=== PATIENT | female | born 1965 | race Caucasian/White ===

== ENCOUNTER 2017-02-02 16:43 | Emergency (ER) | payer OTHER ==
[~2017-02-02] VITALS: Ht 154.9 cm; Wt 68.0 kg
[~2017-02-02 16:43] MED LIST: ACET1TAB40 PO; ALPR0.25 PO; ATOR10TA65 PO; AZIT250T94 PO; CYCL-319 PO; IBUP-1542 PO; IBUP800T25 PO; LEVO137T3 PO; MED4DP PO; NAPR-688 PO; TRAM-40 PO
[2017-02-02 16:51] VITALS: Ht 154.9 cm; Wt 68.0 kg
--- NOTE | 2017-02-02 18:17 | RADRPT ---
PROCEDURE: CT Brain without. CLINICAL INDICATION: Facial numbness. TECHNIQUE: A CT of the brain was performed on multidetector high-resolution CT scanner utilizing a xial sections from the skull base through the vertex without contrast. The scan was reviewed in sof t tissue brain and high frequency resolution bone algorithm windows. Images were reviewed on a high -resolution PACS workstation. One or more the following does reduction techniques were utilized: Aut omated exposure control, adjustment of the mA/ or kV according to patient's size, or use of iterativ e reconstruction technique. The exam CTDI = 44.84 mGy and the DLP = 630.2 mGy-cm. COMPARISON: Brain CT 07/04/2013. FINDINGS: The ventricles and sulci are age-appropriate. There is no intracranial hemorrhage, mass effect or mi dline shift. No abnormal intra-axial or extra-axial fluid collections are seen. The carlson/white nick er differentiation is preserved. No acute skull abnormality is noted. The visualized paranasal sinus es are essentially clear. IMPRESSION: 1. No acute intracranial hemorrhage, transcortical infarction or mass effect. If clinical concern p ersists consider brain MRI. RPTAT: HH .Jered Mcclure MD, MD Date Time Electronically viewed and signed by .Jered Mcclure MD, MD on 02/02/2017 18:17 .N/
--- NOTE | 2017-02-02 19:12 | ERD ---
ER Documentation Chief Complaint Date/Time DATE: 02/02/17 TIME: 19:08 Chief Complaint LEFT SIDED FACIAL [id number], NO NEURO DEFICITS NOTED HPI This is a 51-year-old female with history of hypertension presenting to the emergency department complaining of left-sided facial and scalp numbness and tingling for the past 3 days. Patient denies any vision changes, headache, or other neuro deficits. Patient states that she did have a headache this morning she took ibuprofen and resolved. Patient states that this has happened to her in the past and she went to a physician who put her on atenolol and it went away. She rates as moderate in severity. ROS All systems reviewed and are negative except as per history of present illness. Medications Home Meds Active Scripts Naproxen* (Naproxen*) 500 Mg Tablet, 500 MG PO BID Y for PAIN, #30 TAB Prov:TARI GOODEN PA-C 10/25/15 Cyclobenzaprine Hcl* (Cyclobenzaprine Hcl*) 10 Mg Tablet, 10 MG PO TID Y for PAIN, #20 TAB Prov:TARI GOODEN PA-C 10/25/15 Tramadol Hcl* (Ultram*) 50 Mg Tablet, 50 MG PO Q6H Y for PAIN, #20 TAB Prov:TARI GOODEN PA-C 10/25/15 Methylprednisolone* (Medrol* DOSE PACK) 4 Mg/Dose-Pack Tab.ds.pk, 4 MG PO . DIRECTED, #1 PACKET Prov:TARI GOODEN PA-C 10/25/15 Azithromycin* (Zithromax*) 250 Mg Tablet, 250 MG PO .STEFFENCK DIRECTED, #6 TAB TAKE 500 MG (2 TABS) THE FIRST DAY THEN 250 MG (1 TAB) DAYS 2-5 Prov:MICHAEL YEE MD 06/13/15 Acetaminophen-Codeine* (Acetaminophen-Cod #3*) 300-30 Mg Tab, 1 TAB PO Q4H Y for PAIN, #14 TAB Prov:MICHAEL YEE MD 06/13/15 Ibuprofen* (Motrin*) 600 Mg Tab, 600 MG PO Q6, #20 TAB Prov:MICHAEL YEE MD 06/13/15 Reported Medications Alprazolam* (Xanax*) 0.25 Mg Tablet, 0.25 MG PO HS Y 07/05/13 Atorvastatin Calcium (Atorvastatin Calcium) 10 Mg Tab, 10 MG PO HS 07/05/13 Ibuprofen* (Ibuprofen*) 800 Mg Tablet, 800 MG PO TID Y 07/05/13 Levothyroxine Sodium* (Levothyroxine Sodium*) 137 Mcg Tablet, 137 MCG PO DAILY 07/03/13 Allergies Allergies: Coded Allergies: No Known Allergy (Verified , 06/13/15) PMhx/Soc History of Surgery: No Anesthesia Reaction: No Hx Neurological Disorder: No Hx Respiratory Disorders: No Hx Cardiac Disorders: Yes (high cholesterol) Hx Psychiatric Problems: No Hx Miscellaneous Medical Probl: Yes (anxiety disorder) Hx Alcohol Use: No Hx Substance Use: No Hx Tobacco Use: No Physical Exam Vitals Vital Signs Date Time Temp Pulse Resp B/P Pulse Ox O2 Delivery O2 Flow Rate FiO2 02/02/17 16:51 98.2 88 18 140/86 99 Physical Exam GENERAL: well-developed/well-nourished, in no apparent distress, non-toxic appearing HENT: NC/AT, bilateral tympanic membrane is normal with good cone of light, nares patent, oropharynx clear without exudates EYES: Conjunctiva normal, PERRLA, EOMI, no nystagmus noted NECK: Supple, no lymphadenopathy PULM: CTA bilaterally, no rales, rhonchi, or wheezing heard CV: Normal S1S2, RRR, good capillary refill GI: Soft, non-distended, normal bowel sounds, non-tender BACK: No midline tenderness, no masses, No CVAT EXT: No clubbing, cyanosis, or edema NEURO: Alert and orientated to person, place, and time. CN II-IIX intact. Gait and coordination were normal. Hand escrow agent strength were equal and within normal limits SKIN: Intact, normal turgor PSYCH: Normal mood and mentation, patient denied SI Procedures/MDM This is a 51-year-old female presenting to the emergency department complaining of left-sided facial and scalp numbness and tingling for the past 3 days, differentials include but not limited to multiple sclerosis, CVA, migraine, anxiety. On examination patient had a normal neurological exam, she had no focal weakness. She had full facial movements. A CT of the head was done and did not show any acute pathology. Patient is suitable for following up with a neurologist outpatient. Patient is hematuria stable for discharge for home. Discussed return to the ER for any worsening sinus symptoms. Patient understands and agrees to this plan Departure Diagnosis: Primary Impression: Facial numbness Condition: Fair Patient Instructions: Numbness, Paraesthesias Additional Instructions: Seguimiento con bray mdico regular para obtener isa remisin a un neurlogo Visite a bray mdico maana para un EXAMEN.Regrese a estas instalaciones si no se mejora zhao esperbamos o zhao le dijimos. Regrese a estas instalaciones si no se mejora zhao esperbamos o zhao le dijimos. BEN DOBBINS PA-C February 02, 2017 19:12
[2017-02-02 19:41] VITALS: BP 139/77; PULSE 70; RESP 16
== END 2017-02-02 19:42 | disposition home or self-care (01) ==
LOC: FTE 16:43
DX: R20.0 Anesthesia of skin (principal); I10 Essential (primary) hypertension
CPT/HCPCS: 70450

== ENCOUNTER 2017-03-14 12:13 | Emergency (ER) | payer OTHER ==
[~2017-03-14] VITALS: Ht 157.5 cm; Wt 70.0 kg
[2017-03-14 12:16] VITALS: Ht 157.5 cm; Wt 70.0 kg
[2017-03-14] MEDS ORDERED: traMADol 50 MG TAB PO ONE (14:00)
[2017-03-14] MEDS ORDERED: IBUP-1542 PO (15:08)
--- NOTE | 2017-03-14 15:09 | RADRPT ---
PROCEDURE: XR, right shoulder CLINICAL INDICATION: Pain. TECHNIQUE: 2 views of the shoulder were obtained. COMPARISON: None available FINDINGS: The glenohumeral joint is normal. The acromioclavicular joint is also normal. No acute fracture, d islocation or destructive lesion. The visualized ribs and clavicle are unremarkable. The surroundi ng soft tissues are also unremarkable. IMPRESSION: 1. Unremarkable shoulder x-ray series. RPTAT: GG .Xander Dia MD, Date Time Electronically viewed and signed by .Xandre Dia MD, on 03/14/2017 15:09 .Y/
--- NOTE | 2017-03-14 15:11 | RADRPT ---
PROCEDURE: XR right elbow. CLINICAL INDICATION: Trauma due to a fall. Right elbow pain. TECHNIQUE: Three views. Frontal, lateral, and oblique. COMPARISON: No prior study is available for comparison. FINDINGS: There is no fracture or dislocation. There is diffuse soft tissue swelling. There is no fluid in the elbow joint. Articular surfaces are intact. There is no lytic or blastic lesion. There is no radiopaque foreign body. IMPRESSION: 1. Diffuse soft tissue swelling. 2. No fracture or dislocation. RPTAT: QQ .Viktor Henriquez MD, MD Date Time Electronically viewed and signed by .Viktor Henriquez MD, MD on 03/14/2017 15:11 .R/
--- NOTE | 2017-03-14 15:11 | RADRPT ---
PROCEDURE: XR Cervical Spine. CLINICAL INDICATION: Trauma due to a fall. Neck pain. TECHNIQUE: Three views of the cervical spine were performed. Frontal, lateral, and AP open-mouth o dontoid. The images were reviewed on a PACS workstation. COMPARISON: None. FINDINGS: There is normal stature and alignment of the vertebrae. There is no fracture. There is no lytic or blastic lesion. There are degenerative changes with disk space narrowing and osteophytes at C5-6. The prevertebral soft tissues are normal. IMPRESSION: 1. Degenerative changes at C5-6. 2. Otherwise normal images of the cervical spine. RPTAT: QQ .Viktor Henriquez MD, MD Date Time Electronically viewed and signed by .Viktor Henriquez MD, on 03/14/2017 15:10 .R/
--- NOTE | 2017-03-14 15:12 | ERD ---
ER Documentation Chief Complaint Date/Time DATE: 03/14/17 TIME: 15:10 Chief Complaint S/VANESSA FALL HAS RIGHT ELBOW PAIN/SWELLING HPI This 51-year-old female fell down today after tripping and complains of swelling in her right elbow and pain in her right shoulder and trapezius area. She denies any head injury, loss of consciousness, weakness, bowel or bladder incontinence. She denies any pain in her wrist or hand. ROS All systems reviewed and are negative except as per history of present illness. Medications Home Meds Active Scripts Ibuprofen* (Motrin*) 600 Mg Tab, 600 MG PO Q6, #20 TAB Prov:MICHAEL YEE MD 03/14/17 Naproxen* (Naproxen*) 500 Mg Tablet, 500 MG PO BID Y for PAIN, #30 TAB Prov:TARI GOODEN PA-C 10/25/15 Cyclobenzaprine Hcl* (Cyclobenzaprine Hcl*) 10 Mg Tablet, 10 MG PO TID Y for PAIN, #20 TAB Prov:TARI GOODEN PA-C 10/25/15 Tramadol Hcl* (Ultram*) 50 Mg Tablet, 50 MG PO Q6H Y for PAIN, #20 TAB Prov:TARI GOODEN PA-C 16 Methylprednisolone* (Medrol* DOSE PACK) 4 Mg/Dose-Pack Tab.ds.pk, 4 MG PO . DIRECTED, #1 PACKET Prov:TARI GOODEN PA-C 10/25/15 Azithromycin* (Zithromax*) 250 Mg Tablet, 250 MG PO .KeraPACK DIRECTED, #6 TAB TAKE 500 MG (2 TABS) THE FIRST DAY THEN 250 MG (1 TAB) DAYS 2-5 Prov:MICHAEL YEE MD 06/13/15 Acetaminophen-Codeine* (Acetaminophen-Cod #3*) 300-30 Mg Tab, 1 TAB PO Q4H Y for PAIN, #14 TAB Prov:MICHAEL YEE MD 06/13/15 Ibuprofen* (Motrin*) 600 Mg Tab, 600 MG PO Q6, #20 TAB Prov:MICHAEL YEE MD 06/13/15 Reported Medications Alprazolam* (Xanax*) 0.25 Mg Tablet, 0.25 MG PO HS Y 07/05/13 Atorvastatin Calcium (Atorvastatin Calcium) 10 Mg Tab, 10 MG PO HS 07/05/13 Ibuprofen* (Ibuprofen*) 800 Mg Tablet, 800 MG PO TID Y 07/05/13 Levothyroxine Sodium* (Levothyroxine Sodium*) 137 Mcg Tablet, 137 MCG PO DAILY 07/03/13 Allergies Allergies: Coded Allergies: No Known Allergy (Verified , 03/14/17) PMhx/Soc Medical and Surgical Hx: pt denies Surgical Hx History of Surgery: No Anesthesia Reaction: No Hx Neurological Disorder: No Hx Respiratory Disorders: No Hx Cardiac Disorders: Yes (high cholesterol) Hx Psychiatric Problems: No Hx Miscellaneous Medical Probl: Yes (anxiety disorder) Hx Alcohol Use: No Hx Substance Use: No Hx Tobacco Use: No Smoking Status: Never smoker Physical Exam Vitals Vital Signs Date Time Temp Pulse Resp B/P Pulse Ox O2 Delivery O2 Flow Rate FiO2 03/14/17 12:16 98.1 86 18 122/68 99 Physical Exam Const: [] Alert, [id number]. Head: Atraumatic Eyes: Normal Conjunctiva ENT: Normal External Ears, Nose and Mouth. Neck: Full range of motion..~ No meningismus. Resp: Clear to auscultation bilaterally Cardio: Regular rate and rhythm, no murmurs Abd: Soft, non tender, non distended. Normal bowel sounds Skin: No petechiae or rashes Back: No midline or flank tenderness Ext: No cyanosis, or edema. There is some tenderness and swelling on the lateral aspect of the right forearm. There is no appreciable bony tenderness or deformities. There is no wrist or snuffbox tenderness. There is mild generalized tenderness in the right shoulder capsule and right trapezius. There is minimal right cervical paraspinous muscle tenderness. There is no appreciable midline tenderness or deformities. Neur: Awake and alert Psych: Normal Mood and Affect Results 24 hrs Current Medications Medications (Trade) Dose Ordered Sig/Sharla Route PRN Reason Start Time Stop Time Status Last Admin Dose Admin Tramadol HCl (Ultram) 50 mg ONCE ONCE PO 03/14/17 14:00 03/14/17 14:01 DC 03/14/17 14:15 Procedures/MDM X-ray C spine 3V Interpreted by me: Bones: [No fracture] Joints: [No dislocation] Foreign body: [None]. Impression-normal C-spine x-ray X-ray right shoulder 3V Interpreted by me: Bones: No fracture Joints: No dislocation Foreign body: None. Impression have a normal right shoulder X-ray right elbow 3V Interpreted by me: Fat Pads: [Normal] Bones: [No fracture] Joints: [No dislocation] Foreign body: [None]. Impression have normal right elbow x-ray which soft tissue swelling Patient was given ibuprofen and placed in a room sling. Patient has signs and symptoms of mechanical fall with right elbow contusion with hematoma and sprain of the right shoulder and cervical spine. She will be treated with ibuprofen and primary care follow-up. The patient was stable with no new complaints during the ER course. Clinically, there is no current evidence to suggest meningitis, sepsis, acute abdomen, pneumonia, acute coronary syndrome, pulmonary embolism, or any other emergent condition appearing to require further evaluation or hospitalization. The patient should certainly return for any new or worsening symptoms per the aftercare instructions. They should otherwise follow-up with her primary care doctor for reevaluation this week. Departure Diagnosis: Primary Impression: Fall Encounter type: initial encounter Qualified Code: W19.XXXA - Fall, initial encounter Additional Impression: Elbow injury Encounter type: initial encounter Laterality: right Qualified Code: S59.901A - Elbow injury, right, initial encounter Condition: Stable Patient Instructions: Sprain Elbow, Fall, Mechanical, Hematoma Additional Instructions: Examines normal hoy. Cheque otro vez con bray doctor primario en el proximo junior or regresa para mas o nueva simptomas. CORA OCONNOR. MICHAEL YEE MD Mar 14, 2017 15:12
== END 2017-03-14 15:18 | disposition home or self-care (01) ==
LOC: FTE 12:13
DX: S59.901A Unspecified injury of right elbow, initial encounter (principal); W01.0XXA Fall on same level from slipping, tripping and stumbling without subsequent striking against object, initial encounter; Y92.9 Unspecified place or not applicable
CPT/HCPCS: 72040; 73030; 73080; Z7502; Z7610

== ENCOUNTER 2017-04-29 16:01 | Emergency (ER) | payer OTHER ==
[~2017-04-29] VITALS: Wt 68.0 kg
[2017-04-29] MEDS ORDERED: KETOROLAC 30 MG INJ IM STA (16:29)
[2017-04-29] MEDS ORDERED: DIAZEPAM 5 MG TAB PO ONE (16:30)
--- NOTE | 2017-04-29 16:33 | ERD ---
ER Documentation Chief Complaint Date/Time DATE: 04/29/17 Chief Complaint Right thoracic back pain HPI The patient is a 51-year-old female with history of hypothyroidism and hyperlipidemia, who presents to the Emergency Department with complaint of back pain. The patient reports that her pain initially began 3 days ago, with gradual onset of right-sided thoracic back pain. The pain is constant, and aching in nature. She rates her current pain as 8 out of 10. The patient reports that on 02/19/2017 she had a mechanical trip and fall at home, landing directly onto her right shoulder. She was evaluated at the time due to pain to her right shoulder and trapezius area, and was found to have no evidence of fracture or dislocation. However, given intermittent pain, the patient was sent to physical therapy, where she was given treatment to the right shoulder, trapezius muscles and back. Since beginning the therapy, she has developed her current pain to the right thoracic back. She is uncertain whether this pain is secondary to her recent fall. Otherwise, denies any other falls, injury or trauma to the region. Denies any head injury, loss of consciousness or syncope. Denies any numbness, paresthesias or weakness in the distal extremities. Denies any restricted range of motion. Denies any bowel or bladder disturbances, urinary retention or lower extremity focal deficits. Denies neck pain or neck stiffness. Denies fevers, sweats, chills, nausea, vomiting, abdominal pain, chest pain, palpitations or shortness of breath. The patient notes that yesterday she took a dose of 600 mg ibuprofen with minimal relief. She has not taken any other medication for pain relief since. No other complaints at this time. ROS All systems reviewed and are negative except as per history of present illness. Medications Home Meds Active Scripts Naproxen* (Naprosyn*) 500 Mg Tablet, 500 MG PO BID Y for PAIN AND/OR INFLAMMATION, #30 TAB Prov:KRISTINA ANDRADE PA-C 04/29/17 Cyclobenzaprine Hcl* (Cyclobenzaprine Hcl*) 10 Mg Tablet, 10 MG PO TID, #15 TAB Prov:KRISTINA ANDRADE PA-C 04/29/17 Ibuprofen* (Motrin*) 600 Mg Tab, 600 MG PO Q6, #20 TAB Prov:MICHAEL YEE MD 03/14/17 Naproxen* (Naproxen*) 500 Mg Tablet, 500 MG PO BID Y for PAIN, #30 TAB Prov:TARI GOODEN PA-C 10/25/15 Cyclobenzaprine Hcl* (Cyclobenzaprine Hcl*) 10 Mg Tablet, 10 MG PO TID Y for PAIN, #20 TAB Prov:TARI GOODEN PA-C 10/25/15 Tramadol Hcl* (Ultram*) 50 Mg Tablet, 50 MG PO Q6H Y for PAIN, #20 TAB Prov:TARI GOODEN PA-C 10/25/15 Methylprednisolone* (Medrol* DOSE PACK) 4 Mg/Dose-Pack Tab.ds.pk, 4 MG PO . DIRECTED, #1 PACKET Prov:TARI GOODEN PA-C 10/25/15 Azithromycin* (Zithromax*) 250 Mg Tablet, 250 MG PO .ZPACK DIRECTED, #6 TAB TAKE 500 MG (2 TABS) THE FIRST DAY THEN 250 MG (1 TAB) DAYS 2-5 Prov:MICHAEL YEE MD 06/13/15 Acetaminophen-Codeine* (Acetaminophen-Cod #3*) 300-30 Mg Tab, 1 TAB PO Q4H Y for PAIN, #14 TAB Prov:MICHAEL YEE MD 06/13/15 Ibuprofen* (Motrin*) 600 Mg Tab, 600 MG PO Q6, #20 TAB Prov:MICHAEL YEE MD 06/13/15 Reported Medications Alprazolam* (Xanax*) 0.25 Mg Tablet, 0.25 MG PO HS Y 07/05/13 Atorvastatin Calcium (Atorvastatin Calcium) 10 Mg Tab, 10 MG PO HS 07/05/13 Ibuprofen* (Ibuprofen*) 800 Mg Tablet, 800 MG PO TID Y 07/05/13 Levothyroxine Sodium* (Levothyroxine Sodium*) 137 Mcg Tablet, 137 MCG PO DAILY 07/03/13 Allergies Allergies: Coded Allergies: No Known Allergy (Verified , 04/29/17) PMhx/Soc History of Surgery: No Anesthesia Reaction: No Hx Neurological Disorder: No Hx Respiratory Disorders: No Hx Cardiac Disorders: Yes (high cholesterol) Hx Psychiatric Problems: No Hx Miscellaneous Medical Probl: Yes (anxiety disorder, THYROID) Hx Alcohol Use: No Hx Substance Use: No Hx Tobacco Use: No Smoking Status: Never smoker Physical Exam Vitals Vital Signs Date Time Temp Pulse Resp B/P Pulse Ox O2 Delivery O2 Flow Rate FiO2 04/29/17 19:54 97.7 67 22 140/90 99 Room Air 04/29/17 16:03 98.1 88 18 123/75 98 Physical Exam GENERAL: Well-developed, well-nourished, female, in no acute distress. HEENT: Head is normocephalic, atraumatic. No scleral pallor or icterus. Pupils equal, round and reactive to light. Extraocular movements intact. Conjunctiva pink. Moist mucous membranes. NECK: Supple. No masses, no tenderness, no lymphadenopathy. Trachea midline. No nuchal rigidity. No meningismus. Normal range of motion. No crepitus. RESPIRATORY: Lungs are clear to auscultation bilaterally. Symmetric expansion. Equal breath sounds. Normal expiratory effort. CARDIOVASCULAR: Regular rate and rhythm. S1 and S2 normal. Distal pulses are palpable, 2+ bilaterally. Capillary refill is less than 2 seconds. GASTROINTESTINAL: Abdomen is soft, non-tender, and non-distended. No pulsatile abdominal masses. FLANK: No CVA tenderness. BACK: Tenderness to palpation over the right paraspinal muscles of the thoracic back extending towards the right trapezius muscles. No crepitus. No step-offs. Normal flexion and extension. No midline tenderness. Negative straight leg raise bilaterally. No saddle anesthesia. EXTREMITIES: No clubbing, cyanosis, or edema. Normal skin perfusion. Moving all extremities. 5 out of 5 strength upper and lower extremities bilaterally. Muscle tone is normal. No focal swelling or erythema. NEUROLOGIC: The patient is alert, awake, and oriented x 3. No focal neurologic deficits. Motor and sensation grossly intact. INTEGUMENT: Skin is intact. Warm and dry. No rashes, no petechiae present. PSYCHIATRIC: Cooperative; appropriate. Results 24 hrs Laboratory Tests Test 04/29/17 17:12 Bedside Urine pH (LAB) 6.0 Bedside Urine Protein (LAB) Negative Bedside Urine Glucose (UA) Negative Bedside Urine Ketones (LAB) Negative Bedside Urine Blood Negative Bedside Urine Nitrite (LAB) Negative Bedside Urine Leukocyte Esterase (L Negative Current Medications Medications (Trade) Dose Ordered Sig/Sharla Route PRN Reason Start Time Stop Time Status Last Admin Dose Admin Ketorolac Tromethamine (Toradol) 30 mg ONCE STAT IM 04/29/17 16:29 04/29/17 16:31 DC 04/29/17 16:48 Diazepam (Valium) 2.5 mg ONCE ONCE PO 04/29/17 16:30 04/29/17 16:31 DC 04/29/17 16:51 Procedures/MDM DIAGNOSTIC TESTS AND INTERPRETATION: PROCEDURE: Thoracic Spine. CLINICAL INDICATION: Fall, right-sided pain. TECHNIQUE: 3 views of the thoracic spine. COMPARISON: None available FINDINGS: The superior thoracic spine is obscured by the shoulders on the lateral view. The thoracic kyphosis is preserved without spondylolisthesis. The vertebral body and disk heights are maintained. No acute fracture or subluxation is seen. Mild multilevel endplate osteophytosis is noted along the superior and mid thoracic spine. The visualized lungs are clear. IMPRESSION: 1. No acute fracture or subluxation of the thoracic spine. .Sukumar Wade MD, MD Date Time Electronically viewed and signed by .Sukumar Wade MD, MD on 04/29/2017 19:09 EMERGENCY DEPARTMENT COURSE: The patient was stable throughout the ED course. Toradol 30 mg IM, Diazepam 2.5 mg PO administered. Urinalysis and urine (negative) performed. Thoracic back x-rays taken. On reevaluation, the patient reports no new complaints and decreased pain. MEDICAL DECISION MAKING: This is a 51-year-old female presenting to the Emergency Department with complaint of right-sided thoracic back pain. On physical examination the patient had tenderness to palpation with spasm noted over the paraspinal muscles of the right thoracic back. She had negative straight leg raise with no saddle-region anesthesia noted. Vital signs were appropriate. She exhibited no altered mental status, neurologic deficits, saddle anesthesia, bowel or bladder disturbances, incontinence, urinary retention, or lower extremity motor or sensory deficits. The differential diagnosis includes, but is not limited to, cauda equina syndrome, epidural abscess, epidural hematoma, osteomyelitis, vertebral fracture, lumbosacral strain, herniated disc, spinal stenosis, nephrolithiasis, osteoarthritis, sciatica, spondylolisthesis, bursitis, fracture , pyelonephritis, abdominal aortic aneurysm, aortic dissection, herpes zoster, radiculopathy, myelopathy, neoplastic disease. Several months ago the patient was evaluated by a industrial safety and health specialist who diagnosed her with a herniated intervertebral disc. Given these results and patient's examination, this is likely the underlying cause of her symptoms and discomfort. After rest and administration of Toradol and diazepam, the patient reports no new complaints, and decreased pain. Upon my review and interpretation of the patient's presentation, clinical data, and overall ER course, I believe the patient's symptoms are most consistent with thoracic back pain and muscle spasm, likely strain. I doubt cord compression or cauda equina syndrome, as patient is with equal, strong motor in bilateral lower extremities, no bowel/bladder disturbances, incontinence or retention, no saddle-anesthesia. Doubt vertebral fracture, no midline bony tenderness, no evidence of fracture on x-ray imaging. Doubt neoplastic disease, metastases unlikely given no night sweats, systemic symptoms, no risk factors. Doubt epidural abscess, patient is afebrile, with no history of IV drug use and is immunocompetent. Renal/aortic pathology not consistent with patient history or physical examination, no pulsatile abdominal masses, equal pulses bilaterally. Doubt pyelonephritis, no systemic symptoms, no flank pain, no CVA tenderness. Doubt zoster, no vesicular lesions noted. At this time, the patient is in stable condition and therefore can be discharged home with a prescription for naproxen and Flexeril and strict return precautions for signs of deteriorating or worsening condition. The patient is advised to follow up with her primary care provider within 2-3 days for reevaluation and further management, or return to the ER sooner for any new or worsening symptoms. I shared my medical decision making and plan with the patient at length and in great detail, and the patient verbally understands and agrees with the plan for further observation and care as an outpatient. At the time of discharge, all questions were answered. Departure Diagnosis: Primary Impression: Right-sided thoracic back pain Chronicity: acute Qualified Code: M54.6 - Acute right-sided thoracic back pain Additional Impression: Muscle spasm of back Condition: Stable Patient Instructions: Back Spasm, No Trauma, Muscle Spasm, Thoracic Strain Additional Instructions: Llame al doctor MAANA y monica isa KENDRA PARA DENTRO DE 2-3 CEDILLO.Dgale a la secretaria que nosotros le instruimos hacer esta kendra.Avise o llame si bray condicin se empeora antes de la kendra. Regresa aqui si peor o no mejor. KRISTINA ANDRADE PA-C Apr 29, 2017 16:33
[2017-04-29 17:05] LABS: URINE BLOOD (Dip) POC Negative (NEGATIVE)
[2017-04-29] MEDS ORDERED: NAPR-260 PO (18:54)
[2017-04-29] MEDS ORDERED: CYCL-319 PO (18:54)
--- NOTE | 2017-04-29 19:09 | RADRPT ---
PROCEDURE: Thoracic Spine. CLINICAL INDICATION: Fall, right-sided pain. TECHNIQUE: 3 views of the thoracic spine. COMPARISON: None available FINDINGS: The superior thoracic spine is obscured by the shoulders on the lateral view. The thoracic kyphosis is preserved without spondylolisthesis. The vertebral body and disk heights are maintained. No acu te fracture or subluxation is seen. Mild multilevel endplate osteophytosis is noted along the superi or and mid thoracic spine. The visualized lungs are clear. IMPRESSION: 1. No acute fracture or subluxation of the thoracic spine. RPTAT: HTAR .Sukumar Wade MD, MD Date Time Electronically viewed and signed by .Sukumar Wade MD, on 04/29/2017 19:09 .R/
[2017-04-29 19:54] VITALS: BP 140/90; PULSE 67; RESP 22; TEMP 97.7
== END 2017-04-29 19:55 | disposition home or self-care (01) ==
LOC: FTE 16:01
DX: M54.6 Pain in thoracic spine (principal); M62.830 Muscle spasm of back; E03.9 Hypothyroidism, unspecified
CPT/HCPCS: 72072; 81003; 96372; J1885; Z7502; Z7610

== ENCOUNTER 2017-05-28 23:02 | Emergency (ER) | payer OTHER ==
[~2017-05-28] VITALS: Wt 68.5 kg
[~2017-05-28 23:02] MED LIST changes: +NAPR-260 PO
[2017-05-29] MEDS ORDERED: HYDROCODONE/APAP (5/325) TAB PO ONE (01:30)
[2017-05-29] MEDS ORDERED: IBUPROFEN 600 MG TAB PO ONE (01:30)
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
--- NOTE | 2017-05-29 02:16 | RADRPT ---
AMENDMENT: 05/29/2017 2:17:25 AM Joseph Nunn MD ADDENDUM: Corrected Impression: No acute fracture or dislocation. Changes consistent with erosive arthritis involving the distal as pect middle phalanx of the third digit. PROCEDURE: XR Hand. CLINICAL INDICATION: Trauma. Pain... TECHNIQUE: Three views of the right hand were obtained. COMPARISON: No prior studies are available for comparison. FINDINGS: No acute fracture is identified. There is corticated the remote appearing ulnar styloid fracture. J oint relationships are maintained. There are periarticular erosions of the distal aspect middle phal anx of the third digit. Bone mineralization is within normal limits. Soft tissues are unremarkable. IMPRESSION: No acute fracture or dislocation. Change add with erosive arthritis involving the distal aspect mid dle phalanx of the third digit. RPTAT: HMVK .Joseph Nunn MD, Date Time Electronically viewed and signed by .Joseph Nunn MD, on 05/29/2017 02:17 .K/
[2017-05-29] MEDS ORDERED: IBUP-1542 PO (02:34)
== END 2017-05-29 03:01 | disposition home or self-care (01) ==
LOC: FTE 23:02
DX: S43.401A Unspecified sprain of right shoulder joint, initial encounter (principal); V49.50XA Passenger injured in collision with unspecified motor vehicles in traffic accident, initial encounter
CPT/HCPCS: 73130; Z7502; Z7610

== ENCOUNTER 2017-10-13 15:15 | Emergency (ER) | END 2017-10-13 19:40 | disposition home or self-care (01) ==

== ENCOUNTER 2017-11-28 10:32 | Emergency (ER) | END 2017-11-28 15:36 | disposition home or self-care (01) ==

== ENCOUNTER 2018-01-08 14:40 | Emergency (ER) | END 2018-01-08 17:12 | disposition home or self-care (01) ==

== ENCOUNTER 2018-07-13 11:09 | Day surgery (SDC) | END 2018-07-13 15:27 | disposition home or self-care (01) ==

== ENCOUNTER 2019-02-06 05:33 | Emergency (ER) | payer MEDICAID, OTHER ==
[~2019-02-06] VITALS: Ht 152.4 cm; Wt 66.0 kg
[~2019-02-06 05:33] MED LIST changes: -ACET1TAB40 PO; -ALPR0.25 PO; +ALPR0.254 PO; -ATOR10TA65 PO; -AZIT250T94 PO; -CYCL-319 PO; -IBUP800T25 PO; +IBUP800T48 PO; -LEVO137T3 PO; +LEVO150T7 PO; -MED4DP PO; +METO-335 PO; -NAPR-260 PO; -NAPR-688 PO; +SIMV20TA PO; -TRAM-40 PO
[2019-02-06 05:44] VITALS: BP 119/79; PULSE 79; RESP 18; Ht 152.4 cm; Wt 66.0 kg
[2019-02-06] MEDS ORDERED: KETOROLAC 30 MG INJ IM STA (07:02)
--- NOTE | 2019-02-06 07:24 | ERD ---
ER Documentation Chief Complaint Chief Complaint L arm tingling/pain since last nite; hx HTN,thyroidism; took Ibuprofen@2300 HPI Patient is a 53-year-old female with past medical history of hypothyroidism, hypertension, presents to the ER for concerns of left hand pain. She states her pain started on 11 PM yesterday. She states she has difficulty with bending her finger secondary to pain. Patient states she does have numbness only in her hand. Patient states she also has pain in her left upper arm. Patient states she did take ibuprofen which did help with her pain however pain started again. Patient denies any chest pain or shortness of breath. Patient denies any radiation of pain is down into her left arm. Patient states the pain localized to her hand as well as upper arm. Patient denies any associated jaw pain, neck pain, nausea, vomiting, diaphoresis, headache, blurry vision or LOC. Patient denies any unilateral weakness, slurred speech, difficulty ambulating. ROS All systems reviewed and are negative except as per history of present illness. Medications Home Meds Active Scripts Naproxen* (Naprosyn*) 500 Mg Tablet, 500 MG PO BID PRN for PAIN AND/OR INFLAMMATION, #30 TAB Prov:MESSI MONTANEZ PA-C 02/06/19 Ibuprofen* (Motrin*) 800 Mg Tab, 800 MG PO Q6H PRN for PAIN AND OR ELEVATED TEMP, #30 TAB Prov:ROSARIO IBRAHIM MD 01/08/18 Reported Medications Simvastatin* (Zocor*) 20 Mg Tablet, 20 MG PO QHS, #30 TAB 11/28/17 Metoprolol Succinate* (Toprol XL*) 25 Mg Tab.sr.24h, 25 MG PO DAILY, #30 TAB 11/28/17 Levothyroxine Sodium* (Levothyroxine Sodium*) 150 Mcg Tablet, 150 MCG PO BEFORE BREAKFAST, #30 TAB 11/28/17 Alprazolam* (Alprazolam*) 0.25 Mg Tablet, 0.25 MG PO NEEDED PRN for ANXIETY, TAB 11/28/17 Ibuprofen* (Ibuprofen*) 600 Mg Tablet, 600 MG PO Q6H PRN for PAIN, TAB 11/28/17 Allergies Allergies: Coded Allergies: No Known Allergy (Verified , 01/08/18) PMhx/Soc History of Surgery: No Anesthesia Reaction: No Hx Neurological Disorder: No Hx Respiratory Disorders: No Hx Cardiac Disorders: No Hx Psychiatric Problems: No Hx Miscellaneous Medical Probl: No Hx Alcohol Use: No Hx Substance Use: No Hx Tobacco Use: No FmHx Family History: No diabetes Physical Exam Vitals Vital Signs Date Temp Pulse Resp B/P (MAP) Pulse Ox O2 O2 Flow FiO2 Time Delivery Rate 02/06/19 98.7 79 18 119/79 100 05:44 (92) Physical Exam GENERAL: Well-developed, well-nourished female. Appears in no acute distress. Speaking in full sentences. HEAD: Normocephalic, atraumatic. EYES: Pupils are equally reactive bilaterally. EOMs grossly intact. No conjunctival erythema. ENT: Moist mucous membranes. No uvula deviation. No kissing tonsils. NECK: Supple. No meningismus. Normal range of motion of the neck. LUNG: Clear to auscultation bilaterally. No rhonchi, wheezing, rales or coarse breath sounds. HEART: Regular rate and rhythm. No murmurs, rubs or gallops. Equal pulses in bilateral upper extremities. EXTREMITIES: Equal pulses bilaterally. No peripheral clubbing, cyanosis or edema. No unilateral leg swelling. Tender to palpation of left fingers, left forearm and left upper arm. Pain is reproducible. NEUROLOGIC: Alert and oriented x3, cooperative. Mood and affect appropriate to situation. Cranial nerves II through XII are grossly intact. Normal speech. Motor exam: 5/5 strength in upper and lower extremities. Sensory exam: Sensation intact to light touch on all four extremities. Cerebellar function exam: Rapid alternating movements intact. No dysmetria on oppcst-[id number] and wisq-ha-gtlq test. Steady gait. No pronator drift. Equal sap pp consultant strength bilaterally. SKIN: Normal color. Warm and dry. No rashes or lesions. Result Diagram: 02/06/19 0718 02/06/1918 Results 24 hrs Laboratory Tests Test 02/06/19 07:18 White Blood Count 5.9 10^3/ul Red Blood Count 4.49 10^6/ul Hemoglobin 12.1 g/dl Hematocrit 37.7 % Mean Corpuscular Volume 84.0 fl Mean Corpuscular Hemoglobin 26.9 pg Mean Corpuscular Hemoglobin Concent 32.1 g/dl Red Cell Distribution Width 14.9 % Platelet Count 239 10^3/UL Mean Platelet Volume 10.9 fl Immature Granulocytes % 0.200 % Neutrophils % 59.5 % Lymphocytes % 28.0 % Monocytes % 9.8 % Eosinophils % 2.2 % Basophils % 0.3 % Nucleated Red Blood Cells % 0.0 /100WBC Immature Granulocytes # 0.010 10^3/ul Neutrophils # 3.5 10^3/ul Lymphocytes # 1.7 10^3/ul Monocytes # 0.6 10^3/ul Eosinophils # 0.1 10^3/ul Basophils # 0.0 10^3/ul Nucleated Red Blood Cells # 0.0 10^3/ul Sodium Level 140 mmol/L Potassium Level 3.9 mmol/L Chloride Level 108 mmol/L Carbon Dioxide Level 24 mmol/L Anion Gap 8 Blood Urea Nitrogen 12 mg/dl Creatinine 0.63 mg/dl Est Glomerular Filtrat Rate mL/min > 60 mL/min Glucose Level 115 mg/dl Calcium Level 9.3 mg/dl Troponin I < 0.012 ng/ml POC Beta HCG, Qualitative NEGATIVE Current Medications Medications Dose Sig/Sharla Start Time Status Last (Trade) Ordered Route PRN Stop Time Admin Dose Reason Admin Ketorolac 30 mg ONCE STAT 02/06/19 DC 02/06/19 Tromethamine IM 07:02 07:32 (Toradol) 02/06/19 07:04 Procedures/MDM ED COURSE: The patient was stable throughout ED course. I kept the patient and/or family informed of laboratory and diagnostic imaging results throughout the ED course. EKG: Read by Dr. Noriega, attending physician. EKG shows normal sinus rhythm at a rate of 76 bpm. No arrhythmias, acute ST elevations or T wave changes were noted. DIAGNOSTIC IMAGING: Read by radiologist. Patient: SUE ANDERSON : 1965 Age: 53 Sex: F MR #: [id number] DOS: 02/06/19 0702 Ordering MD: MESSI MONTANEZ PA-C Location: [facility] Room/Bed: PROCEDURE: XR Chest. CLINICAL INDICATION: Chest Pain. TECHNIQUE: Single frontal view of the chest was obtained COMPARISON: 11/28/2017 FINDINGS: The heart and mediastinum are within normal limits. The lungs are clear. There is no pleural effusion or pneumothorax. The bones and soft tissue show no acute change. IMPRESSION: No definite abnormalities are identified. RPTAT:AAJJ Frank Lainez Physician Date Time Electronically viewed and signed by Frank Lainez Physician on 02/06/2019 08:10 MC/ CC: MESSI MONTANEZ PA-C [phone] PROCEDURES: None. MEDICATIONS GIVEN: Toradol IM Patient tolerated medication well with no adverse reactions. Patient reported improvement in pain. MEDICAL DECISION MAKING: This is a 53-year-old female with past medical history of hypothyroidism, hypertension, presents the ER for concerns of left hand pain x1 day. Patient also states she is having pain in her left upper arm. Patient denied any radiation of pain into her chest. Patient denied any chest pain or shortness of breath. On exam, patient did have reproducible pain of her left fingers, forearm and upper arm. Vital signs were reviewed. Patient was afebrile. Patient was not hypoxic. Card iac exam was normal. Lung exam was normal. Full neuro exam was normal. Patient had no neurological focal deficits. Blood work was obtained. CBC showed no evidence of systemic infection or severe anemia. BMP showed no evidence of electrolyte abnormalities, severe acidosis, alkalosis, renal failure , or liver disease. EKG showed normal sinus rhythm. Reviewed by ED attending. No STEMI. Troponin was negative. Urine test was negative. X-ray was within normal limits. Patient was given Toradol for pain and she did report improvement in symptoms. At this time, patient's presentation is most consistent with musculoskeletal pain. Low suspicion for CVA, TIA, ACS, arrhythmia, pericarditis, pneumothorax, pneumonia, pleural effusion, severe electrolyte abnormality, anemia, sepsis, f racture dislocation. Patient was nontoxic, [id number] prior to discharge. PRESCRIPTIONS: Naproxen DISCHARGE: At this time, patient is stable for discharge and outpatient management. I have instructed the patient to follow-up with his/her primary care physician in 1-2 days. If symptoms persist, patient may need to see a specialist for further examinations and testing. I have instructed the patient to promptly return to the ER at any time for any new or worsening symptoms including increased increased pain, fever, nausea, vomiting, numbness, weakness, diaphoresis or LOC. The patient and/or family expressed understanding of and agreement with this plan. All questions were answered. Home care instructions were provided. Disclaimer: Inadvertent spelling and grammatical errors are likely due to EHR/dictation software use and do not reflect on the overall quality of patient care. Also, please note that the electronic time recorded on this note does not necessarily reflect the actual time of the patient encounter. Departure Diagnosis: Primary Impression: Left arm pain Condition: Fair Patient Instructions: Muscle Strain, Extremity Referrals: [facility] YOU HAVE RECEIVED A MEDICAL SCREENING EXAM AND THE RESULTS INDICATE THAT YOU DO NOT HAVE A CONDITION THAT REQUIRES URGENT TREATMENT IN THE EMERGENCY DEPARTMENT. FURTHER EVALUATION AND TREATMENT OF YOUR CONDITION CAN WAIT UNTIL YOU ARE SEEN IN YOUR DOCTORS OFFICE WITHIN THE NEXT 1-2 DAYS. IT IS YOUR RESPONSIBILITY TO MAKE AN APPOINTMENT FOR FOLOW-UP CARE. IF YOU HAVE A PRIMARY DOCTOR --you should call your primary doctor and schedule an appointment IF YOU DO NOT HAVE A PRIMARY DOCTOR YOU CAN CALL OUR PHYSICIAN REFERRAL HOTLINE AT IF YOU CAN NOT AFFORD TO SEE A PHYSICIAN YOU CAN CHOSE FROM THE FOLLOWING [facility] [address] [facility]. [facility] [address] [facility]. [facility] [address] [facility] [facility] [address] [facility]. [facility] [address] [facility]. [facility]. [address] [facility]. [facility] YOU HAVE RECEIVED A MEDICAL SCREENING EXAM AND THE RESULTS INDICATE THAT YOU DO NOT HAVE A CONDITION THAT REQUIRES URGENT TREATMENT IN THE EMERGENCY DEPARTMENT. FURTHER EVALUATION AND TREATMENT OF YOUR CONDITION CAN WAIT UNTIL YOU ARE SEEN IN YOUR DOCTORS OFFICE WITHIN THE NEXT 1-2 DAYS. IT IS YOUR RESPONSIBILITY TO MAKE AN APPOINTMENT FOR FOLOW-UP CARE. IF YOU HAVE A PRIMARY DOCTOR --you should call your primary doctor and schedule and appointment IF YOU DO NOT HAVE A PRIMARY DOCTOR YOU CAN CALL OUR PHYSICIAN REFERRAL HOTLINE AT . IF YOU CAN NOT AFFORD TO SEE A PHYSICIAN YOU CAN CHOSE FROM THE FOLLOWING [facility] INSTITUTIONS: [facility] [address] [place] [address] [facility] [address] [place] [address] [facility] [address] [place] [address] Additional Instructions: Llame al doctor MAANA y monica isa KENDRA PARA DENTRO DE 1-2 CEDILLO.Dgale a la secretaria que nosotros le instruimos hacer esta kendra.Avise o llame si bray condicin se empeora antes de la kendra. Regresa aqui si peor o no mejor. MESSI MONTANEZ PA-C February 06, 2019 07:24
[2019-02-06] MEDS ORDERED: NAPR-985 PO (08:13)
== END 2019-02-06 08:12 | disposition home or self-care (01) ==
LOC: FTE 05:33
DX: M79.602 Pain in left arm (principal); E03.9 Hypothyroidism, unspecified; I10 Essential (primary) hypertension
CPT/HCPCS: 36415; 71045; 80048; 81025; 84484; 85025; 93005; 96372; 99285; J1885